=== PATIENT | male | born 2000 | race Caucasian/White ===

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

== ENCOUNTER 2018-08-11 13:53 | Emergency (ER) | payer MEDICAID ==
[2018-08-11 14:04] VITALS: BP 137/89; PULSE 87; RESP 18; TEMP 99; O2SAT 100
[2018-08-11 14:05] VITALS: BMI 26.3
--- NOTE | 2018-08-11 14:15 | ED PDOC ---
Arrival/HPI - General Time Seen by Provider: 08/11/18 14:05 Historian: Patient - History of Present Illness Narrative History of Present Illness (Text): 08/11/18 14:15 17 year old male, with no significant past medical history, presents to the emergency department complaining of an infection to the right 4th digit nail that began yesterday. Patient bites his nails. Patient's father gave patient 2 tablets for his symptoms, but patient is unsure of the name of the medication. He denies any trauma or injury. Patient denies any fever, chills, rash, or any other complaints. Time/Duration: 24 hours Symptom Onset: Sudden Symptom Course: Unchanged Activities at Onset: Light Context: Home Past Medical History - Provider Review Nursing Documentation Reviewed: Yes - Psychiatric Hx Substance Use: No Family/Social History - Physician Review Nursing Documentation Reviewed: Yes Family/Social History: No Known Family HX Smoking Status: Never Smoked Hx Alcohol Use: No Hx Substance Use: No Allergies/Home Meds Allergies/Adverse Reactions: Allergies No Known Allergies Allergy (Verified 11/10/16 17:03) Review of Systems - Physician Review All systems were reviewed & negative as marked: Yes - Review of Systems Constitutional: absent: Fevers, Other (chills) Skin: Other (infection to the right 4th finger nail). absent: Rash Physical Exam - Physical Exam Narrative Physical Exam (Text): Gen: VS reviewed, alert, well developed, well nourished, nontoxic, mild distress. ENT: normal pharynx. Eye: EOMI, PERRL. Skin: Paronychia infection to the right 4th digit. No clear fluctuance. good color, no rash, no cyanosis. Psych: responds appropriately to questions, normal affect. Neuro: oriented x 3, CN2-12 intact grossly, motor intact, sensation intact. Vital Signs Reviewed: Yes Vital Signs Temp Pulse Resp BP Pulse Ox 08/11/18 14:03 99.0 F 87 18 137/89 100 Temperature: Afebrile Blood Pressure: Normal Pulse: Regular Respiratory Rate: Normal Medical Decision Making ED Course and Treatment: 08/11/18 14:10 Impression: 17 year old male presents complaining fo an infection to the right 4th digit of the nail that began yesterday. Plan: -- Prescription for Keflex -- Reassess and disposition Progress Notes: 08/11/18 14:13 paronychia infection right 4th digit, no clear fluctuance that would be amenable to incision and drainage, abx, warm soaks. - Scribe Statement The provider has reviewed the documentation as recorded by the Ryan Rodriguez Provider Scribe Attestation: All medical record entries made by the Scribmichael were at my direction and personally dictated by me. I have reviewed the chart and agree that the record accurately reflects my personal performance of the history, physical exam, medical decision making, and the department course for this patient. I have also personally directedIrwin Disposition/Present on Arrival - Present on Arrival Any Indicators Present on Arrival: No History of DVT/PE: No History of Uncontrolled Diabetes: No Urinary Catheter: No History Surgical Site Infection Following: None - Disposition Have Diagnosis and Disposition been Completed?: Yes Diagnosis: Paronychia Disposition: HOME/ ROUTINE Disposition Time: 14:14 Patient Plan: Discharge Condition: STABLE Discharge Instructions (ExitCare): Paronychia (DC) Prescriptions: Cephalexin [Keflex] 500 mg PO QID 7 Days #28 capsule
== END 2018-08-11 14:45 | disposition home or self-care (01) ==
LOC: ED 13:53
DX: L03.011 Cellulitis of right finger (principal)